=== PATIENT | male | born 1980 | race Two or more races ===

== ENCOUNTER 2020-01-02 21:28 | Emergency (ER) | payer OTHER ==
[2020-01-02] MEDS ORDERED: Diphtheria,Pertussis(Acell),Tetanus Vaccine 0.5 ML Syringe IM ONE (21:50)
--- NOTE | 2020-01-02 22:07 | EDM.PDOC ---
ED HPI GENERAL MEDICAL PROBLEM - General Chief Complaint: Laceration Stated Complaint: finger laceration at work Time Seen by Provider: 01/02/20 21:46 Source of Information: Reports: Patient History Limitations: Reports: No Limitations - History of Present Illness INITIAL COMMENTS - FREE TEXT/NARRATIVE: Patient is a 39-year-old male who presents with complaints of a an avulsion laceration to radial aspect of his left middle finger. Patient states he was cutting food at work with a sharp knife and he cut himself. He is unsure when his last tetanus vaccination was, however he feels it was more than 10 years ago. States the injury occurred about an hour prior to coming here and he was trying to get it to stop bleeding. Came to the ER when he cannot get it to stop. Left Finger-Middle Pain Score (Numeric/FACES): 6 - Related Data Allergies Allergy/AdvReac Type Severity Reaction Status Date / Time No Known Allergies Allergy Verified 01/02/20 21:44 Home Meds: Home Meds . [No Known Home Meds] 01/02/20 [History] Past Medical History - Past Health History Medical/Surgical History: Denies Medical/Surgical History Social & Family History - Tobacco Use Smoking Status *Q: Unknown Ever Smoked ED ROS GENERAL - Review of Systems Review Of Systems: Comprehensive ROS is negative, except as noted in HPI. ED EXAM, SKIN/RASH Exam: See Below Exam Limited By: No Limitations General Appearance: Alert, WD/WN, No Apparent Distress Respiratory/Chest: No Respiratory Distress, Lungs Clear, Normal Breath Sounds, No Accessory Muscle Use, Chest Non-Tender Cardiovascular: Normal Peripheral Pulses, Regular Rate, Rhythm, No Edema, No Gallop, No JVD, No Murmur, No Rub Neurological: Alert, Oriented, CN II-XII Intact, Normal Cognition, Normal Gait, Normal Reflexes, No Motor/Sensory Deficits Psychiatric: Normal Affect, Normal Mood Skin: Other (1 cm avulsion laceration to the distal, radial aspect of the left middle finger. Very small portion of the fingernail also avulsed. Moderate amount of bleeding at the time of the exam. Avulsion is of the soft tissue of the finger. No exposed bone present.) Course - Vital Signs Last Recorded V/S: Last Vital Signs Temp 98.2 F 01/02/20 21:42 Pulse 92 01/02/20 21:42 Resp 16 01/02/20 21:42 BP 159/99 H 01/02/20 21:42 Pulse Ox 100 01/02/20 21:42 - Orders/Labs/Meds Orders: Active Orders 24 hr Category Date Time Status Vaccines to be Administered [RC] PER UNIT ROUTINE Care 01/02/20 21:50 Active Meds: Medications Discontinued Medications Generic Name Dose Route Start Last Admin Trade Name Freq PRN Reason Stop Dose Admin Diphtheria/Tetanus/Acell Pertussis 0.5 ml 01/02/20 21:50 01/02/20 22:00 Adacel IM 01/02/20 21:51 0.5 ml .ONCE ONE Administration - Re-Assessments/Exams Free Text/Narrative Re-Assessment/Exam: 01/02/20 22:00 Exam, the laceration is avulsed and there is no tissue for which to suture. There is a small sliver of fingernail missing. Anger was cleaned with CHG soap and sterile saline. Quick clot gauze was applied and wrapped in Coban. No active bleeding through the gauze. Will update his tetanus vaccination today. Advised the patient to leave the gauze intact for at least 24 hours and then soak the finger in soapy water to remove the gauze. Advised to not pull the gauze off as this will remove any granulated tissue that is formed. Discharge instructions as noted. Departure - Departure Time of Disposition: 22:01 Disposition: Home, Self-Care 01 Condition: Fair Clinical Impression: Avulsion, finger tip Qualifiers: Encounter type: initial encounter Qualified Code(s): S61.209A - Unspecified open wound of unspecified finger without damage to nail, initial encounter - Discharge Information *PRESCRIPTION DRUG MONITORING PROGRAM REVIEWED*: No *COPY OF PRESCRIPTION DRUG MONITORING REPORT IN PATIENT NANDINI: No Instructions: Wound Care, Adult Referrals: PCP,None [Primary Care Provider] - Forms: ED Department Discharge Additional Instructions: You were seen in the emergency department today for a laceration to your left middle finger. Them, there was no tissue for which sutures could be applied. Therefore the laceration will need to be allowed to heal without closure. Hemostatic gauze was applied to the finger and it was wrapped in elastic wrap. Bleeding did stop while in the ER. Leave this dressing intact for at least 24 hours. You can then remove the elastic wrap and soaked the gauze and the finger in soapy water to remove it. Do not simply remove the gauze without soaking it in water as this will pull off the healed tissue would likely cause it to start bleeding. Watch the finger for signs of infection which includes increased redness, swelling, or drainage. Keep the finger covered to avoid trauma which could cause it to start bleeding again. If it should start bleeding, please return to the emergency department to have the dressing reapplied. If you experience any concerning symptoms, please do not hesitate to return to the emergency department. Sepsis Event Note - Evaluation Sepsis Screening Result: No Definite Risk - Focused Exam Date Exam was Performed: 01/03/20 Time Exam was Performed: 19:29 - My Orders Last 24 Hours: My Active Orders 01/02/20 21:50 Vaccines to be Administered [RC] PER UNIT ROUTINE - Assessment/Plan Last 24 Hours: My Active Orders 01/02/20 21:50 Vaccines to be Administered [RC] PER UNIT ROUTINE
== END 2020-01-02 22:44 | disposition home or self-care (01) ==
LOC: JD.ED 21:28
DX: S61.203A Unspecified open wound of left middle finger without damage to nail, initial encounter (principal); Z23 Encounter for immunization; W26.0XXA Contact with knife, initial encounter; Y99.0 Civilian activity done for income or pay
CPT/HCPCS: 90471; 90715; 99282; 99282-25

== ENCOUNTER 2020-02-14 13:13 | Emergency (ER) | payer SELFPAY ==
--- NOTE | 2020-02-14 14:17 | EDM.PDOC ---
ED HPI GENERAL MEDICAL PROBLEM - General Chief Complaint: Neurological Problem Stated Complaint: [facility] Time Seen by Provider: 02/14/20 13:17 Source of Information: Reports: Patient, EMS, RN Notes Reviewed - History of Present Illness INITIAL COMMENTS - FREE TEXT/NARRATIVE: 39-year-old male has been brought in by [facility] after having had apparent seizure. He had been shopping at [employer] and apparently just finished checking out at [employer]. Bystander states that he seemed to stare off into space then fell to the ground with generalized tonic-clonic seizure activity that lasted about 1 to 2 minutes. EMS was called to the scene and upon their arrival patient was no longer seizing, did seem postictal for a short period of time coming more alert and coherent upon arrival to ED. Time of my exam shortly after arrival to ED patient does remember feeling somewhat weak lightheaded and dizzy prior to this happening but does not remember the seizure itself. He denies any history of prior seizures. He does not take any medications on a regular basis. Denies headache neck back chest or abdominal discomfort. He denies recent illness. He admits he does drink alcohol at least several times a week. He states he has not had alcohol for about the past day and a half. Treatments PRECAST MOLDER: Reports: Other (see below) Other Treatments PRECAST MOLDER: blood sugar - Related Data Allergies Allergy/AdvReac Type Severity Reaction Status Date / Time No Known Allergies Allergy Verified 01/02/20 21:44 Home Meds: Home Meds LORazepam [Ativan] 1 mg PO BID #10 tab 02/14/20 [Rx] Past Medical History - Past Health History Medical/Surgical History: Denies Medical/Surgical History Cardiovascular History: Reports: Hypertension Other Cardiovascular History: suppose to be on medication but is not Social & Family History - Tobacco Use Smoking Status *Q: Current Every Day Smoker Years of Tobacco use: 17 Packs/Tins Daily: 0.5 - Caffeine Use Caffeine Use: Reports: Coffee - Recreational Drug Use Recreational Drug Use: No ED ROS GENERAL - Review of Systems Review Of Systems: See Below Constitutional: Denies: Fever, Chills, Diaphoresis HEENT: Reports: No Symptoms Respiratory: Reports: No Symptoms Cardiovascular: Denies: Chest Pain GI/Abdominal: Denies: Abdominal Pain, Diarrhea, Nausea, Vomiting Musculoskeletal: Reports: No Symptoms. Denies: Neck Pain, Back Pain Skin: Reports: No Symptoms Neurological: Reports: Dizziness. Denies: Headache, Numbness, Tingling, Trouble Speaking, Difficulty Walking, Weakness ED EXAM, NEURO - Physical Exam Exam: See Below General Appearance: Alert, Anxious Eye Exam: Bilateral Eye: Conjunctival Injection (Mild lateral), PERRL Ears: Normal External Exam Nose: Normal Inspection Throat/Mouth: Normal Inspection, Other (No tongue or other intraoral injury) Head Exam: Atraumatic. No: Facial Swelling Neck: Supple, Non-Tender Respiratory/Chest: No Respiratory Distress, Lungs Clear, Normal Breath Sounds Cardiovascular: Tachycardia GI/Abdominal: Soft, Non-Tender Neurological: Alert, No Motor/Sensory Deficits, Other (Patient noted to have resting tremor, no focal weakness) Extremities: Normal Inspection, Normal Range of Motion Skin Exam: Warm, Dry, Normal Color Course - Vital Signs Last Recorded V/S: Last Vital Signs Temp 96.8 F L 02/14/20 13:23 Pulse 115 H 02/14/20 13:23 Resp 18 02/14/20 13:23 BP 182/123 H 02/14/20 13:23 Pulse Ox 98 02/14/20 13:23 - Orders/Labs/Meds Orders: Active Orders 24 hr Category Date Time Status DRUG SCREEN, URINE [URCHEM] Stat Lab 02/14/20 15:25 Ordered Labs: Laboratory Tests 02/14/20 02/14/20 02/14/20 Range/Units 13:43 13:43 13:43 WBC 14.07 H (4.23-9.07) K/mm3 RBC 5.21 (4.63-6.08) M/mm3 Hgb 16.2 (13.7-17.5) gm/dl Hct 49.4 (40.1-51.0) % MCV 94.8 H (79.0-92.2) fl MCH 31.1 (25.7-32.2) pg MCHC 32.8 (32.2-35.5) g/dl RDW Std Deviation 45.1 H (35.1-43.9) fL Plt Count 182 (163-337) K/mm3 MPV 8.7 L (9.4-12.3) fl Neut % (Auto) 85.7 H (34.0-67.9) % Lymph % (Auto) 7.5 L (21.8-53.1) % [place] % (Auto) 5.4 (5.3-12.2) % Eos % (Auto) 0.6 L (0.8-7.0) Baso % (Auto) 0.6 (0.1-1.2) % Neut # (Auto) 12.07 H (1.78-5.38) K/mm3 Lymph # (Auto) 1.05 L (1.32-3.57) K/mm3 [place] # (Auto) 0.76 (0.30-0.82) K/mm3 Eos # (Auto) 0.08 (0.04-0.54) K/mm3 Baso # (Auto) 0.08 (0.01-0.08) K/mm3 Manual Slide Review Normal smear Sodium 134 L (136-145) mEq/L Potassium 3.8 (3.5-5.1) mEq/L Chloride 92 L (98-107) mEq/L Carbon Dioxide 21 (21-32) mEq/L Anion Gap 24.8 H (5-15) BUN 11 (7-18) mg/dL Creatinine 1.4 H (0.7-1.3) mg/dL Est Cr Clr Drug Dosing 73.14 mL/min Estimated GFR (MDRD) 56 (>60) mL/min BUN/Creatinine Ratio 7.9 L (14-18) Glucose 295 H (74-106) mg/dL Calcium 9.5 (8.5-10.1) mg/dL Total Bilirubin 1.9 H (0.2-1.0) mg/dL AST 100 H (15-37) U/L ALT 84 H (16-63) U/L Alkaline Phosphatase 100 (46-116) U/L Total Protein 8.6 H (6.4-8.2) g/dl Albumin 4.5 (3.4-5.0) g/dl Globulin 4.1 gm/dL Albumin/Globulin Ratio 1.1 (1-2) Ethyl Alcohol 0.00 (0.00) gm% Meds: Medications Discontinued Medications Generic Name Dose Route Start Last Admin Trade Name Freq PRN Reason Stop Dose Admin Sodium Chloride 1,000 mls @ 999 mls/hr 02/14/20 14:26 02/14/20 14:30 Normal Saline IV 03/15/20 15:26 999 mls/hr ONETIME ONE Administration Lorazepam 1 mg 02/14/20 14:36 02/14/20 14:44 Ativan IVPUSH 02/14/20 14:37 1 mg ONETIME ONE Administration Lorazepam 1 mg 02/14/20 15:32 Ativan PO 02/14/20 15:33 ONETIME ONE Ondansetron HCl 4 mg 02/14/20 14:27 02/14/20 14:31 Zofran IVPUSH 02/14/20 14:28 4 mg ONETIME ONE Administration - Re-Assessments/Exams Free Text/Narrative Re-Assessment/Exam: 02/14/20 15:45. Because of continued tachycardia and labs showing increased anion gap, CO2 of only 21 showing at least moderate dehydration we did give 1 L of normal saline. Because of nude tremor and shakiness and concern for alcohol withdrawal and alcohol withdrawal seizure he was given Ativan 1 mg IV. With that his blood pressure did come down he became more relaxed no better after 1 L normal saline IV. And further about alcohol he admits that he typically drinks daily, drinks a lot of beer and vodka has discussed treatment options at least a couple of times with staff that [place] [facility] in the past year. Far he has not followed through on any of that. Ambivalent about quitting drinking alcohol at this time. His blood alcohol is 0 today. Said he has not been drinking yesterday or today because he is with "his children". Therefore I am going to send 1 mg tablet of Ativan from the [facility] home with him that he can take this evening. I am sending a prescription home with him that he can fill tomorrow if he decides that he is going to continue to not drink alcohol. We have discussed that if he does go back to drinking alcohol he is not to take the Ativan and drink alcohol at the same time. Discharge instructions as documented. Departure - Departure Time of Disposition: 15:32 Disposition: Home, Self-Care 01 Condition: Fair Clinical Impression: Seizure - Discharge Information Prescriptions: LORazepam [Ativan] 1 mg PO BID #10 tab Instructions: Seizure, Adult Referrals: PCP,None [Primary Care Provider] - Forms: ED Department Discharge Additional Instructions: rest, plenty of water to maintain hydration. We are sending Ativan 1 mg tablet home with you to take this evening at around 7 PM. We are sending a prescription home with you. If you decide to continue to not drink alcohol take the Ativan 1 mg twice daily to help with the shakes and other withdrawal type symptoms. Do not take the Ativan medication and drink alcohol at the same time. Do not drive when taking the ativan. Follow[facility]up with [facility] services as needed. Return to ED as needed if symptoms worsening in any way. Sepsis Event Note - Evaluation Sepsis Screening Result: No Definite Risk - Focused Exam Vital Signs: Vital Signs Temp Pulse Resp BP Pulse Ox 02/14/20 13:23 96.8 F L 115 H 18 182/123 H 98 Date Exam was Performed: 02/14/20 Time Exam was Performed: 15:45 - My Orders Last 24 Hours: My Active Orders 02/14/20 15:25 DRUG SCREEN, URINE [URCHEM] Stat - Assessment/Plan Last 24 Hours: My Active Orders 02/14/20 15:25 DRUG SCREEN, URINE [URCHEM] Stat
--- NOTE | 2020-02-14 14:18 | CT ---
Head CT Technique: Multiple axial sections through the brain were obtained. Intravenous contrast was not utilized. Comparison: No prior intracranial imaging is available. Findings: Ventricles along with basal cisterns and sulci over the convexities are mildly prominent for the patient's age. Arachnoid cyst is noted within the anterior left temporal fossa. No abnormal parenchymal densities are seen. No evidence of intracranial hemorrhage. No midline shift or mass effect is seen. Bone window settings were reviewed which shows scattered mucosal thickening within the ethmoid, left sphenoid sinus and right frontal sinus. Mastoid sinuses are clear. No acute calvarial abnormality is seen Impression: 1. Generalized atrophy which is unusual for this age. This finding can be seen with certain types of medication, previous trauma as well as drug abuse. 2. Arachnoid cyst within the anterior left temporal fossa. 3. Sinus findings most likely chronic. 4. No acute intracranial abnormality is appreciated. Diagnostic code #3 Study was dictated in MDT
[2020-02-14] MEDS ORDERED: Sodium Chloride 0.9% 1,000 ML IV ONE (14:26)
[2020-02-14] MEDS ORDERED: Ondansetron 4 MG/2 ML SDV IVPUSH ONE (14:27)
[2020-02-14] MEDS ORDERED: LORazepam 2 MG/ML SDV IVPUSH ONE (14:36)
[2020-02-14] MEDS ORDERED: LORazepam 1 MG Tab PO ONE (15:32)
== END 2020-02-14 15:50 | disposition home or self-care (01) ==
LOC: JD.ED 13:13
DX: R56.9 Unspecified convulsions (principal); I10 Essential (primary) hypertension; F17.210 Nicotine dependence, cigarettes, uncomplicated
CPT/HCPCS: 36415; 70450; 80053; 80307; 85025; 96361; 96374; 96375; 99285; A9270; J2060; J2405; J7030

== ENCOUNTER 2020-03-13 13:32 | Emergency (ER) | payer SELFPAY ==
--- NOTE | 2020-03-13 14:20 | EDM.PDOC ---
ED HPI GENERAL MEDICAL PROBLEM - General Chief Complaint: Drug or Alcohol Abuse Stated Complaint: [facility] Time Seen by Provider: 03/13/20 14:10 Source of Information: Reports: Patient, EMS, EMS Notes Reviewed Generalized Pain Score (Numeric/FACES): 10 - Related Data Allergies Allergy/AdvReac Type Severity Reaction Status Date / Time No Known Allergies Allergy Verified 01/02/20 21:44 MST Home Meds: Home Meds LORazepam [Ativan] 1 mg PO BID #10 tab 02/14/20 [Rx] Lisinopril [Zestril] 10 mg PO DAILY #30 tablet 03/13/20 [Rx] Past Medical History - Past Health History Medical/Surgical History: Denies Medical/Surgical History Cardiovascular History: Reports: Hypertension Other Cardiovascular History: suppose to be on medication but is not Neurological History: Reports: Seizure Psychiatric History: Reports: Addiction - Infectious Disease History Infectious Disease History: Reports: Chicken Pox Social & Family History - Family History Family Medical History: Noncontributory - Tobacco Use Smoking Status *Q: Current Every Day Smoker Years of Tobacco use: 20 Packs/Tins Daily: 0.5 - Caffeine Use Caffeine Use: Reports: Coffee Course - Vital Signs Last Recorded V/S: Last Vital Signs Temp 97.5 F 03/13/20 13:33 MDT Pulse 81 03/13/20 17:01 MDT Resp 17 03/13/20 18:01 MDT BP 133/82 03/14/20 05:44 MDT Pulse Ox 98 03/13/20 17:01 MDT - Orders/Labs/Meds Labs: Laboratory Tests 03/13/20 03/13/20 Range/Units 15:20 MDT 15:20 MDT WBC 6.85 (4.23-9.07) K/mm3 RBC 4.71 (4.63-6.08) M/mm3 Hgb 14.6 D (13.7-17.5) gm/dl Hct 44.4 (40.1-51.0) % MCV 94.3 H (79.0-92.2) fl MCH 31.0 (25.7-32.2) pg MCHC 32.9 (32.2-35.5) g/dl RDW Std Deviation 43.5 (35.1-43.9) fL Plt Count 195 (163-337) K/mm3 MPV 8.7 L (9.4-12.3) fl Neut % (Auto) 72.4 H (34.0-67.9) % Lymph % (Auto) 10.7 L (21.8-53.1) % [place] % (Auto) 14.5 H (5.3-12.2) % Eos % (Auto) 0.4 L (0.8-7.0) Baso % (Auto) 1.9 H (0.1-1.2) % Neut # (Auto) 4.96 (1.78-5.38) K/mm3 Lymph # (Auto) 0.73 L (1.32-3.57) K/mm3 [place] # (Auto) 0.99 H (0.30-0.82) K/mm3 Eos # (Auto) 0.03 L (0.04-0.54) K/mm3 Baso # (Auto) 0.13 H (0.01-0.08) K/mm3 Sodium 133 L (136-145) mEq/L Potassium 3.5 (3.5-5.1) mEq/L Chloride 95 L (98-107) mEq/L Carbon Dioxide 27 (21-32) mEq/L Anion Gap 14.5 (5-15) BUN 7 (7-18) mg/dL Creatinine 0.7 (0.7-1.3) mg/dL Est Cr Clr Drug Dosing 146.29 mL/min Estimated GFR (MDRD) > 60 (>60) mL/min BUN/Creatinine Ratio 10.0 L (14-18) Glucose 98 (74-106) mg/dL Calcium 9.1 (8.5-10.1) mg/dL Total Bilirubin 1.1 H (0.2-1.0) mg/dL AST 74 H (15-37) U/L ALT 87 H (16-63) U/L Alkaline Phosphatase 91 (46-116) U/L Total Protein 7.6 (6.4-8.2) g/dl Albumin 3.9 (3.4-5.0) g/dl Globulin 3.7 gm/dL Albumin/Globulin Ratio 1.1 (1-2) Ethyl Alcohol 0.00 (0.00) gm% Meds: Medications Discontinued Medications Generic Name Dose Route Start Last Admin Trade Name Freq PRN Reason Stop Dose Admin Sodium Chloride 1,000 mls @ 999 mls/hr 03/13/20 15:16 MDT 03/13/20 15:30 MDT Normal Saline IV 03/13/20 16:16 MDT 999 mls/hr ONETIME ONE Administration Lisinopril 10 mg 03/14/20 05:39 MDT 03/14/20 05:44 MDT Prinivil PO 03/14/20 05:40 MDT 10 mg ONETIME STA Administration Lorazepam 1 mg 03/13/20 15:16 MDT 03/13/20 15:30 MDT Ativan IVPUSH 03/13/20 15:17 MDT 1 mg ONETIME ONE Administration Ondansetron HCl 4 mg 03/13/20 15:16 MDT 03/13/20 15:30 MDT Zofran IVPUSH 03/13/20 15:17 MDT 4 mg ONETIME ONE Administration Departure - Departure Time of Disposition: 18:45 Disposition: Home, Self-Care 01 Clinical Impression: Alcohol withdrawal syndrome, Transaminitis, Alcohol abuse - Discharge Information Prescriptions: Lisinopril [Zestril] 10 mg PO DAILY #30 tablet Instructions: Alcohol Use Disorder, Alcohol Withdrawal Syndrome Referrals: PCP,None [Primary Care Provider] - 1 Day ([facility]) Additional Instructions: Follow-up with the [facility] for alcohol rehab, assistance. Sepsis Event Note - Evaluation Sepsis Screening Result: No Definite Risk - Focused Exam Date Exam was Performed: 03/14/20 Time Exam was Performed: 19:54
[2020-03-13] MEDS ORDERED: Sodium Chloride 0.9% 1,000 ML IV ONE (15:16)
[2020-03-13] MEDS ORDERED: LORazepam 2 MG/ML SDV IVPUSH ONE (15:16)
[2020-03-13] MEDS ORDERED: Ondansetron 4 MG/2 ML SDV IVPUSH ONE (15:16)
--- NOTE | 2020-03-13 16:31 | EDM.PDOCBH ---
<Sandra Fairbanks - Last Filed: 03/13/20 16:31> ED HPI GENERAL MEDICAL PROBLEM - General Chief Complaint: Drug or Alcohol Abuse Stated Complaint: [facility] Time Seen by Provider: 03/13/20 14:10 Generalized Pain Score (Numeric/FACES): 10 - Related Data Allergies Allergy/AdvReac Type Severity Reaction Status Date / Time No Known Allergies Allergy Verified 01/02/20 21:44 Home Meds: Home Meds LORazepam [Ativan] 1 mg PO BID #10 tab 02/14/20 [Rx] Lisinopril [Zestril] 10 mg PO DAILY #30 tablet 03/13/20 [Rx] Past Medical History - Past Health History Medical/Surgical History: Denies Medical/Surgical History Cardiovascular History: Reports: Hypertension Other Cardiovascular History: suppose to be on medication but is not Neurological History: Reports: Seizure Psychiatric History: Reports: Addiction - Infectious Disease History Infectious Disease History: Reports: Chicken Pox Social & Family History - Family History Family Medical History: Noncontributory - Tobacco Use Smoking Status *Q: Current Every Day Smoker Years of Tobacco use: 20 Packs/Tins Daily: 0.5 - Caffeine Use Caffeine Use: Reports: Coffee COURSE, BEHAVIORAL HEALTH COMP - Course Vital Signs: Last Vital Signs Temp 97.5 F 03/13/20 13:33 Pulse 81 03/13/20 17:01 Resp 17 03/13/20 18:01 BP 164/152 H 03/13/20 18:00 Pulse Ox 98 03/13/20 17:01 Orders, Labs, Meds: Laboratory Tests 03/13/20 03/13/20 Range/Units 15:20 15:20 WBC 6.85 (4.23-9.07) K/mm3 RBC 4.71 (4.63-6.08) M/mm3 Hgb 14.6 D (13.7-17.5) gm/dl Hct 44.4 (40.1-51.0) % MCV 94.3 H (79.0-92.2) fl MCH 31.0 (25.7-32.2) pg MCHC 32.9 (32.2-35.5) g/dl RDW Std Deviation 43.5 (35.1-43.9) fL Plt Count 195 (163-337) K/mm3 MPV 8.7 L (9.4-12.3) fl Neut % (Auto) 72.4 H (34.0-67.9) % Lymph % (Auto) 10.7 L (21.8-53.1) % [place] % (Auto) 14.5 H (5.3-12.2) % Eos % (Auto) 0.4 L (0.8-7.0) Baso % (Auto) 1.9 H (0.1-1.2) % Neut # (Auto) 4.96 (1.78-5.38) K/mm3 Lymph # (Auto) 0.73 L (1.32-3.57) K/mm3 [place] # (Auto) 0.99 H (0.30-0.82) K/mm3 Eos # (Auto) 0.03 L (0.04-0.54) K/mm3 Baso # (Auto) 0.13 H (0.01-0.08) K/mm3 Sodium 133 L (136-145) mEq/L Potassium 3.5 (3.5-5.1) mEq/L Chloride 95 L (98-107) mEq/L Carbon Dioxide 27 (21-32) mEq/L Anion Gap 14.5 (5-15) BUN 7 (7-18) mg/dL Creatinine 0.7 (0.7-1.3) mg/dL Est Cr Clr Drug Dosing 146.29 mL/min Estimated GFR (MDRD) > 60 (>60) mL/min BUN/Creatinine Ratio 10.0 L (14-18) Glucose 98 (74-106) mg/dL Calcium 9.1 (8.5-10.1) mg/dL Total Bilirubin 1.1 H (0.2-1.0) mg/dL AST 74 H (15-37) U/L ALT 87 H (16-63) U/L Alkaline Phosphatase 91 (46-116) U/L Total Protein 7.6 (6.4-8.2) g/dl Albumin 3.9 (3.4-5.0) g/dl Globulin 3.7 gm/dL Albumin/Globulin Ratio 1.1 (1-2) Ethyl Alcohol 0.00 (0.00) gm% Medications Discontinued Medications Generic Name Dose Route Start Last Admin Trade Name Freq PRN Reason Stop Dose Admin Sodium Chloride 1,000 mls @ 999 mls/hr 03/13/20 15:16 03/13/20 15:30 Normal Saline IV 03/13/20 16:16 999 mls/hr ONETIME ONE Administration Lorazepam 1 mg 03/13/20 15:16 03/13/20 15:30 Ativan IVPUSH 03/13/20 15:17 1 mg ONETIME ONE Administration Ondansetron HCl 4 mg 03/13/20 15:16 03/13/20 15:30 Zofran IVPUSH 03/13/20 15:17 4 mg ONETIME ONE Administration Departure - Departure Disposition: Home, Self-Care 01 Clinical Impression: Alcohol withdrawal syndrome, Transaminitis, Alcohol abuse - Discharge Information Prescriptions: Lisinopril [Zestril] 10 mg PO DAILY #30 tablet Instructions: Alcohol Use Disorder, Alcohol Withdrawal Syndrome Referrals: PCP,None [Primary Care Provider] - 1 Day ([facility]) Additional Instructions: Follow-up with the [facility] for alcohol rehab, assistance. Sepsis Event Note - Evaluation Sepsis Screening Result: No Definite Risk - Focused Exam Vital Signs: Vital Signs Temp Pulse Pulse Resp BP BP Pulse Ox 03/13/20 18:01 17 03/13/20 18:00 25 H 164/152 H 03/13/20 17:59 24 H 03/13/20 17:31 14 152/107 H 03/13/20 17:30 18 03/13/20 17:01 81 15 143/102 H 98 03/13/20 17:00 81 13 98 03/13/20 16:31 80 12 145/101 H 98 03/13/20 16:30 80 16 100 03/13/20 16:01 81 17 142/94 H 99 03/13/20 16:00 81 13 99 03/13/20 15:41 87 15 147/100 H 96 03/13/20 15:40 87 15 96 03/13/20 15:31 88 13 143/101 H 94 L 03/13/20 15:30 92 25 H 95 03/13/20 15:21 79 15 149/105 H 98 03/13/20 15:20 88 19 99 03/13/20 15:11 85 14 147/99 H 95 03/13/20 15:10 80 13 96 03/13/20 15:05 85 15 96 03/13/20 13:33 97.5 F 93 20 164/101 H 97 Date Exam was Performed: 03/13/20 Time Exam was Performed: 16:31 <RanulfocarrollGuevara K - Last Filed: 03/13/20 18:43> ED HPI GENERAL MEDICAL PROBLEM - General Source of Information: Reports: Patient, EMS Notes Reviewed History Limitations: Reports: No Limitations - History of Present Illness INITIAL COMMENTS - FREE TEXT/NARRATIVE: Patient brought in by ambulance after having possibly passed out. Patient has been homeless. His last drink alcohol was on Saturday and has had alcohol withdrawal seizure and withdrawal problems from alcohol. Does smoke cigarettes denies any illegal drugs. Currently not complaining of any headache Onset: Today Duration: Constant Location: Reports: Generalized Severity: Moderate Improves with: Reports: None Worsens with: Reports: None (Patient brought in by EMS for evaluation of altered mental status. Patient's been more shaky and tremulous. His last drink alcohol was Saturday, March 11. Had alcohol withdrawal seizures in the past. Currently is not complaining of any headache, no double vision or blurry vision, no hallucinations. Denies any fevers or chills. Does feel cold from being out side and did not sleep well because he is homeless. Denies any runny nose or sore throat no shortness of breath or breathing problems. Does have occasional cough. No vomiting or diarrhea, mild nausea, has not really ate or drink much in the last 2 days. No burning pain or blood in the urine.) ED ROS GENERAL - Review of Systems Review Of Systems: See Below Constitutional: Reports: Decreased Appetite. Denies: Fever, Chills, Weakness, Night Sweats HEENT: Denies: Rhinitis, Throat Pain, Vision Change Respiratory: Reports: Cough. Denies: Shortness of Breath Cardiovascular: Reports: Blood Pressure Problem (History of high blood pressure has been on lisinopril however cannot afford it.). Denies: Chest Pain GI/Abdominal: Reports: Decreased Appetite, Nausea. Denies: Abdominal Pain, Black Stool, Bloody Stool, Melena, Vomiting : Denies: Dysuria, Frequency Musculoskeletal: Denies: Neck Pain, Muscle Pain Skin: Reports: No Symptoms Neurological: Reports: No Symptoms. Denies: Confusion, Headache, Numbness, Paresthesia, Syncope, Tingling, Change in Speech, Gait Disturbance Psychiatric: Reports: Anxiety Hematologic/Lymphatic: Denies: Easy Bleeding ED EXAM, BEHAVIORAL HEALTH - Physical Exam Exam: See Below Exam Limited By: No Limitations General Appearance: Alert, WD/WN, No Apparent Distress Eye Exam: Bilateral Eye: EOMI, Other (No nystagmus, no conjunctival injection or pallor.) Nose: Normal Inspection Throat/Mouth: Normal Inspection, Normal Oropharynx Head: Atraumatic Neck: Normal Inspection, Supple Respiratory/Chest: No Respiratory Distress, Lungs Clear Cardiovascular: Normal Peripheral Pulses, Regular Rate, Rhythm, No Edema GI/Abdominal: Normal Bowel Sounds, Soft, Non-Tender, No Organomegaly, No Distention, No Mass. No: No Abnormal Bruit, Hepatomegaly Extremities: Normal Inspection Neurological: Alert, Normal Mood/Affect, CN II-XII Intact, No Motor/Sensory Deficits, Oriented x 3 Psychiatric: Alert, Normal Affect, Normal Cognition, Normal Mood, Oriented. No : Homicidal Thoughts, Suicidal Plan, Suicidal Thoughts, Pressured Speech, Paranoid Thoughts Skin Exam: Warm COURSE, BEHAVIORAL HEALTH COMP - Course Re-Assessment/Re-Exam: Patient resting comfortably. Was given 1 dose of Ativan, no shakes or tremors. Giving IV fluids. Does have some elevation of his LFTs currently his alcohol level is 0. Normal white blood cell count no fever, no anemia noted. Creatinine stable blood sugar stable. Re-Assessment/Re-Exam Date: 03/13/20 (Placed a call to [facility] Emergency line for an emergency bed. ) Departure - Departure Time of Disposition: 18:43 Condition: Fair Sepsis Event Note - Focused Exam Date Exam was Performed: 03/13/20 Time Exam was Performed: 18:39
[2020-03-14] MEDS ORDERED: Lisinopril 10 MG Tab PO STA (05:39)
== END 2020-03-14 10:07 | disposition home or self-care (01) ==
LOC: JD.ED 13:32
DX: F10.239 Alcohol dependence with withdrawal, unspecified (principal); R74.0 Nonspecific elevation of levels of transaminase and lactic acid dehydrogenase [LDH]; I10 Essential (primary) hypertension; F17.210 Nicotine dependence, cigarettes, uncomplicated; Z79.899 Other long term (current) drug therapy
CPT/HCPCS: 36415; 80053; 80307; 85025; 96361; 96374; 96375; 99285; A9270; J2060; J2405; J7030; 99284

== ENCOUNTER 2021-03-20 23:42 | Emergency (ER) | payer MEDICAID ==
--- NOTE | 2021-03-21 00:47 | EDM.PDOCBH ---
ED HPI GENERAL MEDICAL PROBLEM - General Chief Complaint: Drug or Alcohol Abuse Stated Complaint: alcohol Time Seen by Provider: 03/21/21 00:12 Source of Information: Reports: Patient, Other (Staff member from [facility]) History Limitations: Reports: No Limitations - History of Present Illness INITIAL COMMENTS - FREE TEXT/NARRATIVE: Mr. James is a very pleasant 40-year-old gentleman with a past medical history significant for binge-pattern alcoholism and untreated anxiety, depression, and PTSD, who now presents to the ED after developing nausea and dry heaves around 10:00 yesterday morning, 03/20/2021, followed by the development of tingling of both of his arms, along with dizziness and black dots within his vision around 14:00 yesterday afternoon. The patient is concerned that his symptoms may indicate that he is going to suffer an alcohol withdrawal seizure, like he did in March 2020, however, the patient acknowledges that he had been drinking for months prior to that seizure. In this case, the patient had been sober for several months before resuming drinking this past 03/15/2021, with his last drink around 21:00 this past 03/19/2021. He states that he drank about a quart of vodka per day. The patient states that he began drinking around 14 years of age. He has been hospitalized due to his drinking only once, last March, because of the seizure. He has never suffered DTs. He acquired one DUI around 1996. He has suffered loss of relationships and loss of employment due to his drinking. He has been to inpatient alcohol treatment more than 15 times, currently at [facility] for the past 11 months, approximately. The patient states that he has not eaten much food since 03/17/2021. Here in the ED, the patient's initial BP is found to be elevated at 157/101, otherwise, he is hemodynamically stable, afebrile, saturating 98% on room air. He appears to be calm and comfortable, in no distress whatsoever. He states that he feels slight tingling in his arms, otherwise, the nausea, lightheadedness, and black dots in his vision have resolved. He is not tremulous. Prior to yesterday, the patient denies having a recent fever, chills, sore throat, ear pain, nasal or sinus congestion, cough, dyspnea, chest pain, palpitations, nausea, vomiting, constipation, diarrhea, abdominal pain, urinary symptoms, recent weight gain or weight loss, recent bloody bowel movements or black bowel movements, recent joint aches, headaches, or rashes. The patient's PCP is Lynda Tse NP. - Related Data Allergies Allergy/AdvReac Type Severity Reaction Status Date / Time No Known Allergies Allergy Verified 01/02/20 21:44 Home Meds: Home Meds lisinopriL [Zestril] 10 mg PO DAILY #30 tablet 03/13/20 [Rx] Ondansetron [Zofran ODT] 1 tab PO Q8H PRN #10 tab.dis 03/21/21 [Rx] Past Medical History Cardiovascular History: Reports: High Cholesterol, Hypertension Neurological History: Reports: Seizure (alcohol-withdrawal related, x 02 Mar 2020) Psychiatric History: Reports: Addiction (alcohol), Anxiety (untreated), Depression (untreated), PTSD (untreated) - Infectious Disease History Infectious Disease History: Reports: Chicken Pox - Past Surgical History Oncologic Surgical History: Reports: Biopsy of Breast (left, benign) Social & Family History - Tobacco Use Tobacco Use Status *Q: Current Every Day Tobacco User Tobacco Use Within Last Twelve Months: Smokeless Tobacco (Chews on occasion) Years of Tobacco use: 26 Packs/Tins Daily: 0.5 Packs/Tins Daily Comment: Down from 1 ppd Tobacco Use Comment: Started smoking at 14 yrs old - Caffeine Use Caffeine Use: Reports: Soda - Alcohol Use Alcohol Use History: Yes Alcohol Use Frequency: Binges - Recreational Drug Use Recreational Drug Use: Yes Drug Use in Last 12 Months: No Recreational Drug Type: Reports: Cocaine (last snoorted around 1997), Marijuana/Hashish (last smoked around 2012 or 2013), Methamphetamine (last sn orted or smoked around 2005) - Living Situation & Occupation Living situation: Reports: Single, Other ([place]) Occupation: Unemployed ED ROS GENERAL - Review of Systems Review Of Systems: Comprehensive ROS is negative, except as noted in HPI. ED EXAM, BEHAVIORAL HEALTH - Physical Exam Exam: See Below Exam Limited By: No Limitations General Appearance: Alert, No Apparent Distress, Thin Eye Exam: Bilateral Eye: EOMI, Normal Inspection Ears: Normal External Exam, Hearing Grossly Normal Nose: Normal Inspection Throat/Mouth: Normal Voice, No Airway Compromise, Other (Wearing a mask) Head: Atraumatic, Normocephalic Neck: Normal Inspection, Full Range of Motion Respiratory/Chest: No Respiratory Distress, Lungs Clear, Normal Breath Sounds, No Accessory Muscle Use Cardiovascular: Normal Peripheral Pulses, Regular Rate, Rhythm, No Edema, No Gallop, No JVD, No Murmur, No Rub GI/Abdominal: Normal Bowel Sounds, Soft, Non-Tender, No Organomegaly, No Distention, No Abnormal Bruit, No Mass Back Exam: Normal Inspection, Full Range of Motion, NT Extremities: Normal Inspection, Normal Range of Motion, No Pedal Edema, Normal Capillary Refill Neurological: Alert, Normal Cognition, No Motor/Sensory Deficits, Oriented x 3 Psychiatric: Normal Affect Skin Exam: Warm, Dry, Intact, Normal color, No rash COURSE, BEHAVIORAL HEALTH COMP - Course Vital Signs: Last Vital Signs Temp 36.6 C 03/20/21 23:56 Pulse 93 03/20/21 23:56 Resp 18 03/20/21 23:56 BP 157/101 H 03/20/21 23:56 Pulse Ox 98 03/20/21 23:56 Medical Clearance: 03/21/21 00:42 As above, the patient has binge-pattern alcoholism, with his last drink around 21:00 last night, after drinking for about 4 to 5 days, following a period of sobriety for several months. This puts the patient at an exceedingly low risk for the development of DTs, therefore admission to the hospital is not an option . With respect to the patient's symptoms of tingling of his arms, with dizziness and black dots in his vision, these are all consistent with hyperventilation, not an impending seizure. I recommended that the patient follow-up with his PCP to discuss treatment options for anxiety and depression, noting that an antidepressant is often recommended for patients with drug or alcohol problems, as their drinking and drug use is often self-medication for untreated anxiety and depression. While an antidepressant will not reduce the patient's craving for alcohol, it may help him deal with those cravings. The patient agreed. With respect to the patient's nausea and dry heaves, I suspect that it may be related to some gastritis due to his recent drinking. As the patient is not currently nauseated, I will submit a prescription for Zofran that the patient can hot die picker in the morning. I offered to perform some blood work to make sure that the patient has not suffered any significant fluid or electrolyte abnormalities, but the patient declined. I will discharge him home. Departure - Departure Time of Disposition: 00:45 Disposition: Home, Self-Care 01 Condition: Good Clinical Impression: Alcohol consumption binge drinking, Hyperventilation syndrome, Nausea & vomiting - Discharge Information *PRESCRIPTION DRUG MONITORING PROGRAM REVIEWED*: Not Applicable *COPY OF PRESCRIPTION DRUG MONITORING REPORT IN PATIENT NANDINI: Not Applicable Referrals: Lynda Tse NP [Primary Care Provider] - Additional Instructions: You were seen in the emergency room after developing nausea and dry heaves this morning, followed by tingling of your arms with dizziness and black dots within your vision earlier this afternoon, in the setting of recently drinking alcohol. Based on your history and physical examination, your nausea and dry heaves are most likely due to gastritis due to your drinking, while the tingling in your arms, dizziness, and black dots in your vision are most likely due to hyperventilation due to untreated anxiety. Your risk for the development of delirium tremens (DTs) or an alcohol withdrawal seizure is felt to be exceedingly low. A prescription for the anti-nausea medicine Zofran has been sent to the [facility] located in the [place] [facility]. You may dissolve 1 tablet of Zofran on your tongue up to every 8 hours, as needed for nausea/vomiting. Until you are feeling better, we recommend that you eat a bland diet, such as rice, oatmeal, or toast. Chicken noodle soup with saltine crackers is an excellent choice. Stay adequately hydrated, while avoiding alcohol. Gatorade or Pedialyte are good choices. We recommend that you follow-up with your PCP, Lynda Tse NP, to discuss treatment options for anxiety and depression. If any other problems, please do not hesitate to return to the ER. Sepsis Event Note (ED) - Evaluation Sepsis Screening Result: No Definite Risk - Focused Exam Vital Signs: Vital Signs Temp Pulse Resp BP Pulse Ox 03/20/21 23:56 36.6 C 93 18 157/101 H 98
== END 2021-03-21 00:56 | disposition home or self-care (01) ==
LOC: JD.ED 23:42
DX: F10.20 Alcohol dependence, uncomplicated (principal); I10 Essential (primary) hypertension; Z79.899 Other long term (current) drug therapy; Z72.0 Tobacco use
CPT/HCPCS: 99283

== ENCOUNTER 2022-02-07 18:48 | Emergency (ER) | payer MEDICAID ==
[2022-02-07] MEDS ORDERED: Sodium Chloride 0.9% 10 ML Syringe FLUSH PRN (19:32)
[2022-02-07] MEDS ORDERED: Sodium Chloride 0.9% 1,000 ML IV SCH (19:45)
[2022-02-07] MEDS ORDERED: Sodium Chloride 0.9% 1,000 ML IV ONE (20:43)
[2022-02-07] MEDS ORDERED: Sodium Chloride 0.9% 1,000 ML ONE (20:44)
[2022-02-07] MEDS ORDERED: Lactated Ringers 1,000 ML IV SCH (22:30)
== END 2022-02-08 09:05 | disposition home or self-care (01) ==
LOC: JD.ED 18:48
DX: F10.229 Alcohol dependence with intoxication, unspecified (principal); E78.00 Pure hypercholesterolemia, unspecified; I10 Essential (primary) hypertension; Z72.0 Tobacco use; Z79.899 Other long term (current) drug therapy; Z86.16 Personal history of COVID-19; Y90.5 Blood alcohol level of 100-119 mg/100 ml
CPT/HCPCS: 36415; 80053; 80306; 80307; 83735; 85025; 99284; J7030; J7120

== ENCOUNTER 2022-08-02 20:42 | Emergency (ER) | payer MEDICAID | END 2022-08-03 09:00 | disposition home or self-care (01) | LOC: JD.ED 20:42 | DX: F10.229 Alcohol dependence with intoxication, unspecified (principal); Y90.6 Blood alcohol level of 120-199 mg/100 ml; F17.210 Nicotine dependence, cigarettes, uncomplicated; F41.9 Anxiety disorder, unspecified; F32.A Depression, unspecified; I10 Essential (primary) hypertension; E78.00 Pure hypercholesterolemia, unspecified; Z20.822 Contact with and (suspected) exposure to COVID-19 | CPT/HCPCS: 36415; 80053; 80143; 80179; 80306; 80307; 81001; 83735; 85025; 99284; U0002 ==

== ENCOUNTER 2023-08-27 03:19 | Emergency (ER) | payer MEDICAID ==
[2023-08-27] MEDS ORDERED: EPINEPHrine 1 MG/ML SDV IM ONE (03:30)
[2023-08-27] MEDS ORDERED: diphenhydrAMINE 50 MG/ML SDV IVPUSH ONE (03:30)
[2023-08-27] MEDS ORDERED: methylPREDNISolone Sodium Succinate 125 MG/2 ML SDV IVPUSH SCH (03:30)
== END 2023-08-27 04:53 | disposition home or self-care (01) ==
LOC: JD.ED 03:19
DX: T78.40XA Allergy, unspecified, initial encounter (principal); E78.00 Pure hypercholesterolemia, unspecified; K21.9 Gastro-esophageal reflux disease without esophagitis; E03.9 Hypothyroidism, unspecified; Z86.16 Personal history of COVID-19
CPT/HCPCS: 96372; 96374; 96375; 99283; J0171; J1200; J2930; 99282